=== PATIENT | female | born 2000 | race Caucasian/White ===

== ENCOUNTER 2022-01-11 08:30 | Emergency (ER) | payer BC, MEDICAID ==
[~2022-01-11] VITALS: Ht 157.5 cm; Wt 54.5 kg
[~2022-01-11 08:30] MED LIST: AZIT250T PO
[2022-01-11] MEDS ORDERED: ketorolac trometh. 30mg/ml inj. IM ONE (11:50)
[2022-01-11 12:03] VITALS: BP 124/84
== END 2022-01-11 12:06 | disposition home or self-care (01) ==
LOC: ER 08:31
DX: R07.89 Other chest pain (principal); J45.909 Unspecified asthma, uncomplicated; Z90.89 Acquired absence of other organs; Z72.89 Other problems related to lifestyle
CPT/HCPCS: 96372; 99283; J1885

== ENCOUNTER 2024-03-14 17:31 | Emergency (ER) | payer BC ==
[~2024-03-14] VITALS: Ht 157.5 cm; Wt 83.7 kg
[2024-03-14 17:41] VITALS: BP 139/94; PULSE 109; RESP 16; TEMP 98.2; O2SAT 96
== END 2024-03-14 18:08 | disposition home or self-care (01) ==
LOC: ER 17:31
DX: H69.82 Other specified disorders of Eustachian tube, left ear (principal); J45.909 Unspecified asthma, uncomplicated; Z90.49 Acquired absence of other specified parts of digestive tract
CPT/HCPCS: 99282

== ENCOUNTER 2024-07-21 23:14 | Emergency (ER) | payer BC ==
[~2024-07-21] VITALS: Ht 157.5 cm; Wt 71.0 kg
[2024-07-21 23:45] LABS: BASOPHILS # (AUTO) 0.1 X10'3 (0-0.2); BASOPHILS % (AUTO) 0.3 % (0-1); EOSINOPHILS % (AUTO) 0.1 % (0-6); HEMATOCRIT 39.4 % (35.0-45.0); HEMOGLOBIN 12.7 g/dl (12.0-16.0); LYMPHOCYTES # (AUTO) 0.4 X10'3 (1.1-4.8); LYMPHOCYTES % (AUTO) 2.8 % (21-51); MEAN CORPUSCULAR HEMOGLOBIN 25.2 PG (27.0-31.0); MEAN CORPUSCULAR HGB CONC 32.3 g/dL (33.0-36.5); MEAN CORPUSCULAR VOLUME 78.1 FL (78-98); MONOCYTES # (AUTO) 0.9 X10'3 (0-0.9); MONOCYTES % (AUTO) 5.7 % (2-12); NEUTROPHILS # (AUTO) 13.8 X10'3 (1.8-7.7); NEUTROPHILS % (AUTO) 91.1 % (42-75); PLATELET COUNT 337 X10'3 (140-440); RED BLOOD COUNT 5.04 X10'6 (4.20-5.60); WHITE BLOOD COUNT 15.1 X10'3 (4.5-11.0)
[2024-07-21 23:51] LABS: ALANINE AMINOTRANSFERASE 24 U/L (12-78); ALBUMIN 3.9 G/DL (3.4-5.0); ALBUMIN/GLOBULIN RATIO 0.9 (1.1-1.5); ALKALINE PHOSPHATASE 104 IU/L (46-116); ANION GAP 14 (8-16); ASPARTATE AMINO TRANSFERASE 15 U/L (10-37); BILIRUBIN,TOTAL 0.6 MG/DL (0.1-1.0); BLOOD UREA NITROGEN 16 MG/DL (7-18); BUN/CREATININE RATIO 20.8 (10.0-20.0); CALCIUM 8.9 MG/DL (8.5-10.1); CHLORIDE 101 MMOL/L (99-107); CREATININE 0.77 MG/DL (0.40-0.90); GLUCOSE 133 MG/DL (70-104); LIPASE 24 U/L (16-77); POTASSIUM 3.4 MMOL/L (3.5-5.1); SODIUM 138 MMOL/L (135-145); TOTAL CARBON DIOXIDE 23.5 MMOL/L (24-32); TOTAL PROTEIN 8.4 G/DL (6.4-8.2); eCRCL 91 ML/MIN; eGFR > 90 ML/MIN
[2024-07-22] MEDS: normal saline 1000ml 1,000 ML IV ONE (01:18)
[2024-07-22] MEDS: ondansetron 4mg rapidly disintigrating tab PO ONE (01:18)
[2024-07-22] MEDS: ondansetron/PF 4mg/2ml inj IV ONE (01:18)
[2024-07-22 01:22] LABS: HCG SERUM QL NEGATIVE
[2024-07-22] MEDS ORDERED: ONDA-245 PO (02:51)
[2024-07-22 03:25] VITALS: BP 112/58; PULSE 113; RESP 16; TEMP 98.4; O2SAT 98
== END 2024-07-22 03:28 | disposition home or self-care (01) ==
LOC: ER 23:15
DX: K52.9 Noninfective gastroenteritis and colitis, unspecified (principal); J45.909 Unspecified asthma, uncomplicated; Z90.49 Acquired absence of other specified parts of digestive tract
CPT/HCPCS: 36415; 80053; 83690; 84145; 84703; 85025; 96361; 96374; 99283; J2405; J3490; J7030